=== PATIENT | male | born 1965 | race Caucasian/White ===

== ENCOUNTER 2017-12-29 18:18 | Inpatient (IN) | payer MEDICAID ==
[~2017-12-29] VITALS: Ht 177.8 cm; Wt 97.1 kg
[~2017-12-29 18:18] MED LIST: ADDERALL 20 MG20 M1 PO; FIBER LAXATIVE500 MG; HYDROCODON-ACE1 EAC7 PO; LISINOPRIL10 MG PO; POTASSIUM99 M1; TYLENOL W/CODEI1 TAB PO
[2017-12-29 19:43] LABS: BASOPHILS 0.2 % (0-2); EOSINOPHILS 1.5 % (0-7); HEMATOCRIT 39.8 % (42.0-54.0); HEMOGLOBIN 14.1 g/dL (13.5-17.5); IMMATURE GRANULOCYTES 0.3 % (0-5); LYMPHOCYTES 19.6 % (15-50); MCH 31.5 pg (26.0-34.0); MCHC 35.4 g/dL (31.0-37.0); MCV 88.8 fL (80.0-100.0); MEAN PLATELET VOLUME 9.3 fL (7.4-10.4); MONOCYTES 8.9 % (2-11); NEUTROPHILS 69.5 % (40-80); PLATELET COUNT 189 10x3/uL (130-400); RBC 4.48 10x6/uL (4.20-6.10); RDW 12.8 % (11.5-14.5); WBC 12.2 10x3/uL (4.8-10.8)
[2017-12-29 20:22] LABS: ALBUMIN 3.9 g/dL (3.4-5.0); ANION GAP 12.6 mmol/L (8-16); BILIRUBIN - TOTAL 0.98 mg/dL (0.2-1.3); CALCIUM 8.3 mg/dL (8.5-10.1); CARBON DIOXIDE 29.8 mmol/L (21.0-32.0); CREATININE - SERUM 1.2 mg/dL (0.6-1.3); POTASSIUM - SERUM 4.4 mmol/L (3.5-5.1); PROTEIN - SERUM 7.8 g/dL (6.4-8.2)
[2017-12-29 23:12] LABS: APPEARANCE CLEAR (CLEAR); BILIRUBIN NEGATIVE (NEGATIVE); COLOR YELLOW (YELLOW); GLUCOSE NEGATIVE (NEGATIVE); KETONE NEGATIVE (NEGATIVE); NITRITE NEGATIVE (NEGATIVE); PROTEIN NEGATIVE (NEGATIVE); SPECIFIC GRAVITY 1.015 (1.005-1.020); UROBILINOGEN NORMAL (NORMAL)
[2017-12-30 01:48] VITALS: BMI 30.7
[2017-12-30] MEDS ORDERED: PRINIVIL20 MG PO (01:58)
[2017-12-30] MEDS ORDERED: ADDERALL XR 1515 M1 PO (01:58)
[2017-12-30] MEDS ORDERED: PLAVIX75 MG PO (01:59)
[2017-12-30] MEDS ORDERED: POTASSIUM99 M1 PO (02:00)
[2017-12-30] MEDS ORDERED: LIPITOR10 MG PO (02:01)
[2017-12-30] MEDS ORDERED: FISH OIL 1,2001 CAP PO (02:02)
[2017-12-30] MEDS ORDERED: BENADRYL25 MG PO (02:04)
[2017-12-30 04:00] VITALS: BP 123/72
[2017-12-30 09:01] VITALS: BP 118/72
[2017-12-30 12:27] VITALS: BP 129/71
[2017-12-30 13:39] VITALS: Ht 177.8 cm; Wt 97.1 kg
[2017-12-30 16:27] VITALS: BP 126/82
[2017-12-30 22:06] VITALS: BP 128/78
[2017-12-31 05:03] VITALS: BP 134/74
[2017-12-31 06:25] LABS: BASOPHILS 0.1 % (0-2); EOSINOPHILS 2.8 % (0-7); HEMATOCRIT 34.9 % (42.0-54.0); HEMOGLOBIN 11.8 g/dL (13.5-17.5); IMMATURE GRANULOCYTES 0.4 % (0-5); LYMPHOCYTES 23.4 % (15-50); MCH 30.3 pg (26.0-34.0); MCHC 33.8 g/dL (31.0-37.0); MCV 89.5 fL (80.0-100.0); MEAN PLATELET VOLUME 9.7 fL (7.4-10.4); MONOCYTES 8.9 % (2-11); NEUTROPHILS 64.4 % (40-80); RDW 12.7 % (11.5-14.5)
[2017-12-31 06:31] LABS: PLATELET COUNT 147 10x3/uL (130-400); WBC 7.2 10x3/uL (4.8-10.8)
[2017-12-31 06:56] LABS: ALBUMIN 2.9 g/dL (3.4-5.0); ALKALINE PHOSPHATASE 69 U/L (46-116); ALT (SGPT) 29 U/L (10-68); CALC OSMOLALITY 281 mosm/kg (275-300); CALCIUM 7.6 mg/dL (8.5-10.1); CARBON DIOXIDE 23.8 mmol/L (21.0-32.0); CHLORIDE - SERUM 108 mmol/L (98-107); CREATININE - SERUM 0.9 mg/dL (0.6-1.3); GLUCOSE 114 mg/dL (74-106); POTASSIUM - SERUM 4.1 mmol/L (3.5-5.1); PROTEIN - SERUM 6.2 g/dL (6.4-8.2); SODIUM 141 mmol/L (136-145); UREA NITROGEN 13 mg/dL (7-18); eGFR NON AFRICAN AMERICAN > 90 mL/min (90-120)
[2017-12-31 08:02] VITALS: BP 136/80
[2017-12-31] MEDS ORDERED: LEVAQUIN500 MG PO (11:57)
[2017-12-31] MEDS ORDERED: FLAGYL500 MG PO (11:58)
[2017-12-31 12:00] VITALS: BP 144/75
== END 2017-12-31 15:45 | disposition home or self-care (01) | DRG 392 ==
LOC: D.ER 18:18 → D.MS 12-30 00:06 → D.EDHOLD 12-30 00:06 → D.MS 12-30 00:24
PROVIDERS: Family Medicine
DX: K57.32 Diverticulitis of large intestine without perforation or abscess without bleeding (principal); R16.2 Hepatomegaly with splenomegaly, not elsewhere classified; K59.09 Other constipation